=== PATIENT | male | born 1935 | race Caucasian/White ===

== ENCOUNTER → 2016-07-14 | Outpatient (CLI) | payer MEDICARE, OTHER ==
[~2016-07-14] MED LIST: ACET-2723 PO; AMLO5TAB4 PO; ASCO-296 PO; ASPI-557 PO; ATEN-39 PO; ATOR20TA59 PO; DOCU-168 PO; LANS15CA16 PO; LOSA50TA52 PO
== END ==
LOC: LABN 11:29
PROVIDERS: ATTEND Family Medicine
DX: I25.10 Atherosclerotic heart disease of native coronary artery without angina pectoris (principal); R07.89 Other chest pain; Z95.1 Presence of aortocoronary bypass graft
CPT/HCPCS: 84484